=== PATIENT | male | born 1945 | race Caucasian/White ===

== ENCOUNTER 2017-04-01 08:30 | Outpatient (CLI) | payer MEDICARE, BC ==
[2017-04-01 13:07] LABS: BASOPHILS # (AUTO) 0.1 10^3/uL (0.0-0.1); BASOPHILS % (AUTO) 1.9 %; EOSINOPHILS # (AUTO) 0.4 10^3/uL (0.0-0.7); EOSINOPHILS % (AUTO) 9.4 %; HCT - HEMATOCRIT 43.8 % (42.0-52.0); LYMPHOCYTES # (AUTO) 1.5 10^3/uL (1.5-3.5); LYMPHOCYTES % (AUTO) 33.3 %; MEAN CORPUSCULAR HEMOGLOBIN 32.4 pg (27.0-31.0); MEAN CORPUSCULAR HGB CONC 34.2 g/dL (32.0-36.0); MEAN CORPUSCULAR VOLUME 94.6 fL (80.0-94.0); MEAN PLATELET VOLUME 8.3 fL (7.4-11.4); MONOCYTES # (AUTO) 0.5 10^3/uL (0.0-1.0); MONOCYTES % (AUTO) 11.5 %; NEUTROPHILS % (AUTO) 43.9 %; RED BLOOD COUNT 4.62 10^6/uL (4.70-6.10); UNCORRECTED WHITE BLOOD COUNT 4.5 x10^3/uL; WHITE BLOOD COUNT 4.5 x10^3/uL (4.8-10.8)
[2017-04-01 13:22] LABS: ALBUMIN/GLOBULIN RATIO 1.2 (1.0-2.2); BILIRUBIN,TOTAL 1.1 mg/dL (0.2-1.0); BUN - BLOOD UREA NITROGEN 16 mg/dL (6-20); CALCIUM 9.6 mg/dL (8.5-10.3); CARBON DIOXIDE - CO2 27 mmol/L (21-32); CHLORIDE 102 mmol/L (101-111); CHOL/HDL RATIO 3.2 (<5.0); CHOLESTEROL 189 mg/dL; CREATININE 1.1 mg/dL (0.6-1.2); GFR - MDRD 66 (>89); GLUCOSE 98 mg/dL (70-100); HDL CHOLESTEROL 59 mg/dL; LDL/HDL RATIO 1.7 (<3.6); POTASSIUM 4.1 mmol/L (3.5-5.0); SODIUM 136 mmol/L (135-145); TOTAL PROTEIN 7.1 g/dL (6.7-8.2); TRIGLYCERIDES 142 mg/dL; VLDL CHOLESTEROL 28 mg/dL
[2017-04-01 13:27] LABS: PSA FREE 0.09 ng/mL (0.16-2.81)
[2017-04-01 13:28] LABS: PSA TOTAL 0.38 ng/mL (0.000-2.000)
== END 2017-04-01 08:31 | disposition home or self-care (01) ==
LOC: LAB.R 08:30
PROVIDERS: ATTEND Internal Medicine
DX: Z79.899 Other long term (current) drug therapy (principal)
CPT/HCPCS: 80053; 80061; 84154; 85025

== ENCOUNTER 2017-06-10 16:47 | Outpatient (CLI) | payer MEDICARE, BC ==
--- NOTE | 2017-06-11 09:45 | XRAY Report ---
TWO-VIEW CHEST: 06/10/2017 CLINICAL INDICATION: Cough. COMPARISON: 09/30/2015 FINDINGS: Frontal and lateral views of the chest demonstrate a normal cardiac silhouette. Elevation of the left hemidiaphragm is stable. The lungs are clear. No effusion or pneumothorax is present. IMPRESSION: NO EVIDENCE OF ACUTE CARDIOPULMONARY DISEASE. STABLE ELEVATION OF THE LEFT HEMIDIAPHRAG MArnel JOB #: [id number] EXT JOB #:[id number]
== END 2017-06-10 16:48 | disposition home or self-care (01) ==
LOC: DI 16:47
PROVIDERS: ATTEND Internal Medicine
DX: R05 Cough (principal)
CPT/HCPCS: 71020

== ENCOUNTER 2018-09-19 12:02 | Outpatient (CLI) | payer MEDICARE, BC ==
--- NOTE | 2018-09-19 13:41 | XRAY Report ---
Reason: SCIATICA, RIGHT Procedure Date: 09/19/2018 Accession Number: [id number] / [id number] Procedure: XR - Lumbar Spine 2 View CPT Code: FULL RESULT: EXAM: LUMBOSACRAL SPINE RADIOGRAPHY EXAM DATE: 09/19/2018 12:23 PM. CLINICAL HISTORY: Sciatica, right. COMPARISONS: Lumbar spine 2 view 04/20/2016 9:52 AM. TECHNIQUE: 3 views. FINDINGS: Alignment: Relatively stable S-shaped lumbar scoliosis, mild. No significant listhesis. Bones: Five [id number] lumbar vertebral bodies are present. No fractures or bone lesions. Disks: Multilevel disk desiccation with endplate sclerosis and bony spurring. Facets: Severe facet arthropathy at L4 and L5. Sacroiliac Joints: Unremarkable. Soft Tissues: Normal. The visualized bowel gas pattern is normal. IMPRESSION: Relatively stable moderate to severe degenerative changes. RADIA
== END 2018-09-19 12:03 | disposition home or self-care (01) ==
LOC: DI 12:02
PROVIDERS: ATTEND Internal Medicine
DX: M47.9 Spondylosis, unspecified (principal); M51.36 Other intervertebral disc degeneration, lumbar region; M51.37 Other intervertebral disc degeneration, lumbosacral region; M41.9 Scoliosis, unspecified
CPT/HCPCS: 72100

== ENCOUNTER 2019-04-23 12:20 | Emergency (ER) | payer MEDICARE, BC ==
--- NOTE | 2019-04-23 13:32 | XRAY Report ---
Reason: chest tightness Procedure Date: 04/23/2019 Accession Number: [id number] / [id number] Procedure: XR - Chest 1 View X-Ray CPT Code: 17023 FULL RESULT: EXAM: CHEST RADIOGRAPHY. EXAM DATE: 04/23/2019 12:43 PM. CLINICAL HISTORY: Chest tightness. COMPARISON: CHEST 2 VIEW PA/LAT 06/10/2017 5:04 PM. TECHNIQUE: 1 view. FINDINGS: Lungs/Pleura: Elevated left hemidiaphragm, stable since the 06/10/2017 study. Mediastinum: Within exam limitations, the cardiomediastinal contour is normal. Other: None. IMPRESSION: 1. Elevated left hemidiaphragm, stable since the 06/10/2017 study. 2. No focal infiltrates. RADIA
[2019-04-23 13:33] LABS: BASOPHILS # (AUTO) 0.1 10^3/uL (0.0-0.1); BASOPHILS % (AUTO) 1.4 %; EOSINOPHILS # (AUTO) 0.3 10^3/uL (0.0-0.7); EOSINOPHILS % (AUTO) 5.6 %; HGB - HEMOGLOBIN 15.7 g/dL (14.0-18.0); LYMPHOCYTES # (AUTO) 1.2 10^3/uL (1.5-3.5); LYMPHOCYTES % (AUTO) 23.7 %; MEAN CORPUSCULAR HGB CONC 33.1 g/dL (32.0-36.0); MEAN CORPUSCULAR VOLUME 96.9 fL (80.0-94.0); MEAN PLATELET VOLUME 9.1 fL (7.4-11.4); MONOCYTES # (AUTO) 0.6 10^3/uL (0.0-1.0); MONOCYTES % (AUTO) 12.2 %; NEUTROPHILS # (AUTO) 2.9 10^3/uL (1.5-6.6); NEUTROPHILS % (AUTO) 56.7 %; PLT - PLATELET COUNT 224 10^3/uL (130-450); RED CELL DISTRIBUTION WIDTH 12.6 % (12.0-15.0)
[2019-04-23 13:47] LABS: ALBUMIN 4.4 g/dL (3.2-5.5); ALBUMIN/GLOBULIN RATIO 1.3 (1.0-2.2); CALCIUM 9.9 mg/dL (8.5-10.3); CREATININE 1.1 mg/dL (0.6-1.2); TOTAL PROTEIN 7.9 g/dL (6.7-8.2)
--- NOTE | 2019-04-23 14:09 | ED Physician Documentation ---
PD HPI CHEST PAIN - Stated complaint Stated Complaint: CHEST PX - Chief complaint Chief Complaint: Cardiac - History obtained from History obtained from: Patient - History of Present Illness Timing - onset: Other (3 days of constant dull upper sternal aching worse with coughing. Also notes congestion. No fevers, no dyspnea. No travel, leg pain/edema./) Review of Systems Ten Systems: 10 systems reviewed and negative Constitutional: denies: Fever, Chills Cardiac: reports: Chest pain / pressure. denies: Palpitations, Pedal edema, Calf pain Respiratory: reports: Cough. denies: Dyspnea, Hemoptysis, Wheezing GI: denies: Abdominal Pain PD PAST MEDICAL HISTORY - Past Medical History Cardiovascular: None Respiratory: None Endocrine/Autoimmune: None GI: Colon polyps : None Psych: None Musculoskeletal: Osteoarthritis Derm: None - Past Surgical History General: Colonoscopy - Allergies Allergies/Adverse Reactions: Allergies Allergy/AdvReac Type Severity Reaction Status Date / Time No Known Drug Allergies Allergy Verified 08/20/14 08:21 PD ED PE NORMAL - Vitals Vital signs reviewed: Yes - General General: Alert and oriented X 3, No acute distress - HEENT HEENT: PERRL, EOMI - Neck Neck: Supple, no meningeal sign, No bony TTP - Cardiac Cardiac: RRR, No murmur - Respiratory Respiratory: No respiratory distress, Clear bilaterally - Abdomen Abdomen: Normal bowel sounds, Soft, Non tender - Back Back: No CVA TTP, No spinal TTP - Derm Derm: Normal color, Warm and dry - Extremities Extremities: No edema, No calf tenderness / cord - Neuro Neuro: Alert and oriented X 3, Normal speech Results - Vitals Vitals: Vital Signs - 24 hr 04/23/19 12:23 Temperature 36.5 C Heart Rate 68 Respiratory 18 Rate Blood Pressure 148/76 H O2 Saturation 97 Oxygen O2 Source Room air - EKG (time done) 1227 Rate: Rate (enter#) (67) Rhythm: NSR [place]: Normal Intervals: Normal MO QRS: Normal Ischemia: Normal ST segments Computer interpretation: Agree with computer - Labs Labs: Laboratory Tests 04/23/19 04/23/19 04/23/19 13:29 13:29 13:29 WBC 5.0 RBC 4.90 Hgb 15.7 Hct 47.5 MCV 96.9 H MCH 32.0 H MCHC 33.1 RDW 12.6 Plt Count 224 MPV 9.1 Neut # (Auto) 2.9 Lymph # (Auto) 1.2 L [place] # (Auto) 0.6 Eos # (Auto) 0.3 Baso # (Auto) 0.1 Absolute Nucleated RBC 0.00 Nucleated RBC % 0.0 Sodium 140 Potassium 4.5 Chloride 102 Carbon Dioxide 27 Anion Gap 11.0 BUN 16 Creatinine 1.1 Estimated GFR (MDRD) 66 L Glucose 95 Calcium 9.9 Total Bilirubin 2.0 H AST 20 ALT 19 Alkaline Phosphatase 46 Troponin I < 0.04 Total Protein 7.9 Albumin 4.4 Globulin 3.5 Albumin/Globulin Ratio 1.3 Lipase 30 PD MEDICAL DECISION MAKING - ED course ED course: 74-year-old gentleman with 3 days of constant chest pain, it is atypical with a negative EKG and negative troponin, heart score is 2 Nothing in the history or physical to suggest aortic dissection or PE. Departure - Departure Disposition: 01 Home, Self Care Clinical Impression: Atypical chest pain Condition: Good Record reviewed to determine appropriate education?: Yes Health Concerns: chest pain Plan of Treatment: 3 days constant CP, neg trop/ekg Instructions: ED Chest Pain Atypical Unkn Cause Comments: Return if pain worsens or changes, follow-up with your impregnator helper tomorrow and discuss stress testing.
[2019-04-23 14:39] VITALS: BP 140/83
== END 2019-04-23 14:39 | disposition home or self-care (01) ==
LOC: ED 12:20
DX: R07.89 Other chest pain (principal)
CPT/HCPCS: 36415; 71045; 80053; 83690; 84484; 85025; 93005; 99283; 99284

== ENCOUNTER 2019-11-20 16:25 | Outpatient (CLI) | payer MEDICARE, BC ==
--- NOTE | 2019-11-20 17:05 | XRAY Report ---
Reason: COUGH Procedure Date: 11/20/2019 Accession Number: [id number] / [id number] Procedure: XR - Chest 2 View X-Ray CPT Code: 79597 Addended Final Report FULL RESULT: EXAM: CHEST RADIOGRAPHY EXAM DATE: 11/20/2019 04:48 PM. CLINICAL HISTORY: COUGH. COMPARISON: CHEST 1 VIEW 04/23/2019 12:41 PM. TECHNIQUE: 2 views. FINDINGS: Lungs/Pleura: No focal opacities evident. No pleural effusion. No pneumothorax. Normal volumes. Left hemidiaphragm elevation, unchanged compared to prior. Mediastinum: Heart and mediastinal contours are unremarkable. Other: None. IMPRESSION: No acute disease. RADIA The call report notification system was initiated by Dr. Gregorio Barakat at 05:06 PM on 11/20/2019. ADDENDUM: 11/20/19 17:13 The above call report findings were discussed with Marlena Akhtar by Dr. Gregorio Barakat at 05:13 PM on 11/20/2019.
== END 2019-11-20 16:26 | disposition home or self-care (01) ==
LOC: DI 16:25
PROVIDERS: ATTEND Internal Medicine
DX: R05 Cough (principal)
CPT/HCPCS: 71046

== ENCOUNTER 2021-05-05 12:27 | Outpatient (CLI) | payer MEDICARE, BC ==
--- NOTE | 2021-05-05 14:35 | MRI Report ---
PROCEDURE: Brain W/O INDICATIONS: PARKINSON DISEASE TECHNIQUE: Noncontrast axial T1 spin echo, axial T2 fast spin echo, sagittal and axial FLAIR, coronal T2 fast sp in echo, axial gradient echo, axial diffusion and ADC through the brain. COMPARISON: None. FINDINGS: Image quality: Excellent. CSF Spaces: Basal cisterns are patent. No extra-axial fluid collections. Ventricles are normal in size and shape. Brain: No intracranial masses or hemorrhage. Thompson/white matter interface is normal. Brainstem appe ars normal. Diffusion-weighted images demonstrate no acute ischemic insult. No chronic ischemic ins ults. Normal intravascular flow voids are present. Skull and face: Calvarium has normal marrow signal. Orbits appear normal. Sinuses: Mucosal thickening noted in the maxillary sinuses, the ethmoid air cells, the frontal sinuse s and sphenoid sinuses. Mastoids are clear. IMPRESSION: 1. No acute intracranial disease process. 2. Areas of acute or chronic infarction. 3. No abnormal intracranial mass or mass effect. 4. Mild, diffuse cerebral volume loss. 5. Pansinusitis. Reviewed by: Elma Westfall MD, PhD on 05/05/2021 2:34 PM PDT Approved by: Elma Westfall MD, PhD on 05/05/2021 2:34 PM PDT Station ID: [id number]
== END 2021-05-05 12:28 | disposition home or self-care (01) ==
LOC: DI 12:27
PROVIDERS: ATTEND Psychiatry & Neurology Neurology
DX: G20 Parkinson's disease (principal); J32.4 Chronic pansinusitis

== ENCOUNTER 2021-08-14 13:18 | Outpatient (CLI) | payer MEDICARE, BC ==
[2021-08-14 18:01] LABS: BASOPHILS # (AUTO) 0.1 10^3/uL (0.0-0.1); BASOPHILS % (AUTO) 1.1 %; EOSINOPHILS # (AUTO) 0.3 10^3/uL (0.0-0.7); EOSINOPHILS % (AUTO) 6.1 %; HGB - HEMOGLOBIN 15.3 g/dL (14.0-18.0); LYMPHOCYTES # (AUTO) 1.5 10^3/uL (1.5-3.5); LYMPHOCYTES % (AUTO) 27.3 %; MEAN CORPUSCULAR HEMOGLOBIN 31.8 pg (27.0-31.0); MEAN CORPUSCULAR HGB CONC 31.9 g/dL (32.0-36.0); MEAN CORPUSCULAR VOLUME 99.8 fL (80.0-94.0); MEAN PLATELET VOLUME 9.8 fL (7.4-11.4); MONOCYTES # (AUTO) 0.6 10^3/uL (0.0-1.0); NEUTROPHILS % (AUTO) 54.1 %; PLT - PLATELET COUNT 240 10^3/uL (130-450); RED BLOOD COUNT 4.81 10^6/uL (4.70-6.10); RED CELL DISTRIBUTION WIDTH 12.8 % (12.0-15.0); WHITE BLOOD COUNT 5.5 x10^3/uL (4.8-10.8)
[2021-08-14 18:28] LABS: ALBUMIN 4.3 g/dL (3.2-5.5); ALBUMIN/GLOBULIN RATIO 1.3 (1.0-2.2); ALKALINE PHOSPHATASE 53 IU/L (42-121); ALT ALANINE AMINOTRANSFERASE < 10 IU/L (10-60); AST ASPARTATE AMINOTRANSFERASE 14 IU/L (10-42); BUN - BLOOD UREA NITROGEN 15 mg/dL (6-20); CALCIUM 9.8 mg/dL (8.5-10.3); CARBON DIOXIDE - CO2 29 mmol/L (21-32); CHLORIDE 100 mmol/L (101-111); CHOL/HDL RATIO 3.2 (<5.0); CHOLESTEROL 178 mg/dL; GFR - MDRD 73 (>89); GLUCOSE 100 mg/dL (70-100); HDL CHOLESTEROL 56 mg/dL; LDL CHOLESTEROL,CALCULATED 101 mg/dL; LDL/HDL RATIO 1.8 (<3.6); POTASSIUM 4.3 mmol/L (3.5-5.0); SODIUM 136 mmol/L (135-145); TOTAL PROTEIN 7.7 g/dL (6.7-8.2); TRIGLYCERIDES 104 mg/dL; VLDL CHOLESTEROL 21 mg/dL
[2021-08-14 18:31] LABS: THYROID STIMULATING HORMONE 2.16 uIU/mL (0.34-5.60)
== END 2021-08-14 23:59 | disposition home or self-care (01) ==
LOC: LAB.WCP 13:18
PROVIDERS: ATTEND Family Medicine
DX: G20 Parkinson's disease (principal); M19.90 Unspecified osteoarthritis, unspecified site
CPT/HCPCS: 36415; 80053; 80061; 83721; 84443; 85025

== ENCOUNTER 2022-07-31 10:17 | Outpatient (CLI) | payer MEDICARE, BC ==
[2022-07-31 10:32] LABS: BASOPHILS # (AUTO) 0.1 10^3/uL (0.0-0.1); BASOPHILS % (AUTO) 1.2 %; EOSINOPHILS # (AUTO) 0.4 10^3/uL (0.0-0.7); EOSINOPHILS % (AUTO) 8.5 %; HCT - HEMATOCRIT 44.3 % (42.0-52.0); LYMPHOCYTES # (AUTO) 1.1 10^3/uL (1.5-3.5); LYMPHOCYTES % (AUTO) 21.5 %; MEAN CORPUSCULAR HEMOGLOBIN 30.8 pg (27.0-31.0); MEAN CORPUSCULAR HGB CONC 31.6 g/dL (32.0-36.0); MEAN CORPUSCULAR VOLUME 97.4 fL (80.0-94.0); MEAN PLATELET VOLUME 9.2 fL (7.4-11.4); MONOCYTES # (AUTO) 0.6 10^3/uL (0.0-1.0); MONOCYTES % (AUTO) 10.8 %; NEUTROPHILS % (AUTO) 57.2 %; PLT - PLATELET COUNT 220 10^3/uL (130-450); RED BLOOD COUNT 4.55 10^6/uL (4.70-6.10); RED CELL DISTRIBUTION WIDTH 12.9 % (12.0-15.0); WHITE BLOOD COUNT 5.2 x10^3/uL (4.8-10.8)
[2022-07-31 11:00] LABS: THYROID STIMULATING HORMONE 0.87 uIU/mL (0.34-5.60)
[2022-07-31 11:02] LABS: ALBUMIN 4.1 g/dL (3.2-5.5); ALBUMIN/GLOBULIN RATIO 1.3 (1.0-2.2); ALKALINE PHOSPHATASE 52 IU/L (42-121); ALT ALANINE AMINOTRANSFERASE < 10 IU/L (10-60); AST ASPARTATE AMINOTRANSFERASE 11 IU/L (10-42); BILIRUBIN,TOTAL 1.6 mg/dL (0.2-1.0); BUN - BLOOD UREA NITROGEN 19 mg/dL (6-20); CALCIUM 9.7 mg/dL (8.5-10.3); CARBON DIOXIDE - CO2 28 mmol/L (21-32); CHLORIDE 105 mmol/L (101-111); CHOLESTEROL 160 mg/dL; CREATININE 0.9 mg/dL (0.6-1.2); GFR - MDRD 82 (>89); GLUCOSE 101 mg/dL (70-100); HDL CHOLESTEROL 54 mg/dL; LDL CHOLESTEROL,CALCULATED 94 mg/dL; LDL/HDL RATIO 1.7 (<3.6); POTASSIUM 4.3 mmol/L (3.5-5.0); SODIUM 138 mmol/L (135-145); TOTAL PROTEIN 7.2 g/dL (6.7-8.2); TRIGLYCERIDES 62 mg/dL; VLDL CHOLESTEROL 12 mg/dL
== END 2022-07-31 10:18 | disposition home or self-care (01) ==
LOC: LAB 10:17
PROVIDERS: ATTEND Family Medicine
DX: G20 Parkinson's disease (principal); M54.31 Sciatica, right side; M19.90 Unspecified osteoarthritis, unspecified site; R63.4 Abnormal weight loss
CPT/HCPCS: 36415; 80053; 80061; 83721; 84443; 85025

== ENCOUNTER 2022-11-19 10:52 | Outpatient (CLI) | payer MEDICARE, BC ==
[2022-11-19 11:40] LABS: BASOPHILS # (AUTO) 0.1 10^3/uL (0.0-0.1); EOSINOPHILS # (AUTO) 0.4 10^3/uL (0.0-0.7); EOSINOPHILS % (AUTO) 6.6 %; HCT - HEMATOCRIT 44.7 % (42.0-52.0); LYMPHOCYTES # (AUTO) 1.1 10^3/uL (1.5-3.5); LYMPHOCYTES % (AUTO) 18.3 %; MEAN CORPUSCULAR HEMOGLOBIN 31.1 pg (27.0-31.0); MEAN CORPUSCULAR HGB CONC 31.3 g/dL (32.0-36.0); MEAN CORPUSCULAR VOLUME 99.3 fL (80.0-94.0); MEAN PLATELET VOLUME 9.4 fL (7.4-11.4); MONOCYTES # (AUTO) 0.6 10^3/uL (0.0-1.0); MONOCYTES % (AUTO) 10.5 %; NEUTROPHILS # (AUTO) 3.7 10^3/uL (1.5-6.6); NEUTROPHILS % (AUTO) 63.3 %; PLT - PLATELET COUNT 218 10^3/uL (130-450); WHITE BLOOD COUNT 5.9 x10^3/uL (4.8-10.8)
[2022-11-19 11:48] LABS: CALCIUM 9.9 mg/dL (8.5-10.3); CREATININE 0.9 mg/dL (0.6-1.2); INR 1.1 (0.8-1.2); POTASSIUM 4.5 mmol/L (3.5-5.0); PT - PROTHROMBIN TIME 11.9 secs (9.9-12.6)
[2022-11-19 11:55] LABS: PARTIAL THROMBOPLASTIN TIME 28.6 secs (24.9-33.3)
--- NOTE | 2022-11-19 15:21 | XRAY Report ---
PROCEDURE: Chest 1 View X-Ray INDICATIONS: PRESURGERY EEVALUATION TECHNIQUE: One view of the chest was acquired. COMPARISON: Chest x-ray 2 views, 11/20/2019. FINDINGS: Surgical changes and devices: None. Lungs and pleura: There is chronic left hemidiaphragm elevation and left basilar atelectasis. No ple ural effusions or pneumothorax. Mediastinum: Mediastinal contours appear normal. Heart size is normal. Bones and chest wall: No suspicious bony lesions. Overlying soft tissues appear unremarkable. IMPRESSION: 1. No acute cardiopulmonary disease. 2. Chronic left diaphragmatic elevation and left basilar atelectasis. Reviewed by: Andres Huang MD on 11/19/2022 3:20 PM PST Approved by: Andres Huang MD on 11/19/2022 3:20 PM PST Station ID: [id number]
== END 2022-11-19 10:53 | disposition home or self-care (01) ==
LOC: DI 10:52
PROVIDERS: ATTEND Family Medicine
DX: Z01.818 Encounter for other preprocedural examination (principal); J98.11 Atelectasis
CPT/HCPCS: 36415; 80048; 85025; 85610; 85730; 87086; 87181; 87640

== ENCOUNTER 2022-12-04 09:40 | Outpatient (CLI) | payer MEDICARE, BC ==
[2022-12-04 10:25] LABS: BILIRUBIN,URINE NEGATIVE (NEGATIVE); GLUCOSE, URINE (UA) NEGATIVE (NEGATIVE); KETONES,URINE (UA) NEGATIVE (NEGATIVE); LEUKOCYTE ESTERASE, URINE NEGATIVE (NEGATIVE); NITRITE,URINE NEGATIVE (NEGATIVE); OCCULT BLOOD,URINE NEGATIVE (NEGATIVE); PROTEIN,URINE NEGATIVE (NEGATIVE); UROBILINOGEN,URINE 0.2 (NORMAL) E.U./dL (NORMAL)
[2022-12-04 10:33] LABS: BACTERIA,URINE Rare /HPF (None Seen); CLARITY,URINE CLEAR (CLEAR); RBC,URINE None Seen /HPF (0-5); SQUAMOUS EPITHELIAL CELL,UR RARE Squamous (<= Few); WBC,URINE 0-3 /HPF (0-3)
== END 2022-12-04 09:41 | disposition home or self-care (01) ==
LOC: LAB 09:40
PROVIDERS: ATTEND Family Medicine
DX: N41.1 Chronic prostatitis (principal); R82.71 Bacteriuria
CPT/HCPCS: 81001; 87086

== ENCOUNTER 2023-02-23 09:23 | Outpatient (CLI) | payer MEDICARE, BC ==
[2023-02-23 09:44] LABS: BASOPHILS # (AUTO) 0.1 10^3/uL (0.0-0.1); BASOPHILS % (AUTO) 1.6 %; EOSINOPHILS # (AUTO) 0.4 10^3/uL (0.0-0.7); EOSINOPHILS % (AUTO) 8.3 %; HCT - HEMATOCRIT 42.9 % (42.0-52.0); HGB - HEMOGLOBIN 13.8 g/dL (14.0-18.0); LYMPHOCYTES # (AUTO) 1.1 10^3/uL (1.5-3.5); LYMPHOCYTES % (AUTO) 20.8 %; MEAN CORPUSCULAR HEMOGLOBIN 31.2 pg (27.0-31.0); MEAN CORPUSCULAR HGB CONC 32.2 g/dL (32.0-36.0); MEAN CORPUSCULAR VOLUME 96.8 fL (80.0-94.0); MEAN PLATELET VOLUME 9.5 fL (7.4-11.4); MONOCYTES # (AUTO) 0.5 10^3/uL (0.0-1.0); MONOCYTES % (AUTO) 9.9 %; PLT - PLATELET COUNT 185 10^3/uL (130-450); PT - PROTHROMBIN TIME 11.7 secs (9.9-12.6); RED BLOOD COUNT 4.43 10^6/uL (4.70-6.10); RED CELL DISTRIBUTION WIDTH 12.9 % (12.0-15.0); WHITE BLOOD COUNT 5.1 x10^3/uL (4.8-10.8)
[2023-02-23 09:47] LABS: CALCIUM 9.5 mg/dL (8.5-10.3); CREATININE 0.9 mg/dL (0.6-1.2); POTASSIUM 4.1 mmol/L (3.5-5.0)
[2023-02-23 09:52] LABS: PARTIAL THROMBOPLASTIN TIME 27.6 secs (24.9-33.3)
== END 2023-02-23 09:24 | disposition home or self-care (01) ==
LOC: LAB 09:23
PROVIDERS: ATTEND Family Medicine
DX: Z01.812 Encounter for preprocedural laboratory examination (principal)
CPT/HCPCS: 36415; 80048; 85025; 85610; 85730; 87081; 87640

== ENCOUNTER 2023-08-02 16:00 | Outpatient (CLI) | payer MEDICARE, BC | END 2023-08-02 16:15 | disposition home or self-care (01) | LOC: LAB.N 16:00 | PROVIDERS: ATTEND Physician Assistant Medical | DX: R30.0 Dysuria (principal) | CPT/HCPCS: 87086 ==

== ENCOUNTER 2023-08-02 17:07 | Emergency (ER) | payer MEDICARE, BC ==
[2023-08-02 17:26] VITALS: BP 146/76; O2SAT 98
--- NOTE | 2023-08-02 17:58 | ED Physician Documentation ---
History of Present Illness - Stated complaint Stated Complaint: - Chief complaint Chief Complaint: General - History obtained from History obtained from: Patient - Additonal information Additional information: Very nice 78-year-old gentleman presents with right testicular swelling and mild discomfort. Symptoms started about 2 weeks ago as he states it started after he went on a long bike ride and thought perhaps he irritated the testicle. He has not noted any improvement with time however. He has not had a fever or chills, no flank pain, no dysuria urgency or frequency, no penile discharge. He has never had anything similar. He went to the clinic today and had a negative urinalysis and was sent over to the ER for an ultrasound. Review of Systems Constitutional: reports: Reviewed and negative Cardiac: reports: Reviewed and negative Respiratory: reports: Reviewed and negative GI: reports: Reviewed and negative : reports: Testicular pain, Testicular mass. denies: Dysuria, Frequency, Hesitancy, Unable to Void, Incontinent, Hematuria, Discharge Skin: reports: Reviewed and negative PD PAST MEDICAL HISTORY - Past Medical History Cardiovascular: None Respiratory: None Endocrine/Autoimmune: None GI: Colon polyps : None Psych: None Musculoskeletal: Osteoarthritis Derm: None - Past Surgical History General: Colonoscopy - Present Medications Home Medications: Ambulatory Orders Medication Instructions Recorded Confirmed levoFLOXacin [Levaquin] 500 mg PO QD 10 Days #20 tablet 08/02/23 - Allergies Allergies/Adverse Reactions: Allergies Allergy/AdvReac Type Severity Reaction Status Date / Time No Known Drug Allergies Allergy Verified 08/02/23 17:15 PD ED PE NORMAL - Vitals Vital signs reviewed: Yes - General General: Alert and oriented X 3, No acute distress, Well developed/nourished - HEENT HEENT: Atraumatic, Moist mucous membranes - Cardiac Cardiac: RRR, No murmur - Respiratory Respiratory: No respiratory distress, Clear bilaterally - Male Male : Other (Right testicular swelling and mild tenderness, mild left testicular swelling without tenderness, no erythema, no penile dc) Results - Vitals Vitals: Vital Signs - 24 hr 08/02/23 17:16 Temperature 36.7 C Heart Rate 76 Respiratory 16 Rate Blood Pressure 146/76 H O2 Saturation 98 Oxygen O2 Source Room air - Rads (name of study) No standard instances Relevant Findings:: Final report received PD Medical Decision Making - ED course Complexity details: reviewed results, re-evaluated patient, considered differential, d/w patient ED course: 78-year-old male presented with right testicular pain and swelling for the last 2 weeks as described in HPI. The patient is well-appearing here on physical exam in no acute distress. Urinalysis was done in clinic and was negative, therefore proceeded with the ultrasound here which reveals right epididymitis and a extratesticular cyst as well as mild hydrocele. Going to treat the epididymitis with Levaquin 500 mg p.o. x10 days and patient was encouraged to elevate to scrotum, utilize cool compress, Tylenol and ibuprofen as needed for pain. He was cautioned on the potential side effects of the Levaquin. Recommend that he follow-up with urologist on outpatient basis to monitor the extratesticular cyst. I advised he should have some improvement in the right testicle pain as treatment for the epididymitis is in place. Impression reviewed if new or worsening symptoms. Departure - Departure Disposition: 01 Home, Self Care Clinical Impression: Right epididymitis Hydrocele Qualifiers: Hydrocele type: unspecified Qualified Code(s): N43.3 - Hydrocele, unspecified Condition: Good Instructions: ED Epididymitis Follow-Up: Chapincito Solo MD [Provider Admit Priv/Credential] - Prescriptions: levoFLOXacin [Levaquin] 500 mg PO QD 10 Days #20 tablet Comments: You have a cyst on the testicle that should be followed by the urologist. Please schedule follow-up with Dr. Chapincito Solo as listed above. I am also placing on antibiotics for 10 days for epididymitis. This is a inflammation of the epididymis that is sometimes caused by an E. coli bacteria. Try to keep the scrotum elevated, you can do this by placing a Pillowcase underneath the scrotum and not raising it up. You can also utilize a cool compress to the area to help with pain and swelling. Do not apply this directly to the skin however. You may use Tylenol or ibuprofen as needed. Return if you develop a fever or worsening symptoms. Forms: PCP List
--- NOTE | 2023-08-02 18:53 | Ultrasound Report ---
PROCEDURE: Testicle INDICATIONS: right testicular swelling TECHNIQUE: Real-time scanning was performed of the scrotum and testicles, with image documentation. Color and p ulse Doppler interrogation was performed of both testicles. COMPARISON: None. FINDINGS: Right: Testicle is normal in size at 5.1 x 2.7 x 4.4 cm, and heterogeneous in echotexture. Epididym is is normal in overall size and morphology. There is increased vascularity to the epididymis. Mild h ydrocele. No varicoceles. Overlying scrotal skin is normal in thickness. There is a right extratest icular cyst measuring 6.7 x 4.1 x 7.9 cm. Left: Testicle is normal in size at 4.5 x 3.2 x 2.6 cm, and is heterogeneous in echotexture. Epidid ymis is normal in overall size and morphology. Mild hydrocele. Left varicoceles. Overlying scrotal skin is normal in thickness. Doppler: Color and pulse Doppler demonstrate normal and symmetric arterial flow in both testicles. I ncreased vascularity to the right epididymis. IMPRESSION: 1.Increased vascularity to the right epididymis, raising concern for epididymitis. 2.There is a right extratesticular cyst measuring 7.9 cm of unclear etiology. 3.Mild bilateral hydroceles. 4.Left varicocele. Reviewed by: Greyson Daniels MD on 08/02/2023 6:52 PM PDT Approved by: Greyson Daniels MD on 08/02/2023 6:52 PM PDT Station ID: [id number]
== END 2023-08-02 19:18 | disposition home or self-care (01) ==
LOC: ED 17:07
DX: N45.1 Epididymitis (principal); N43.3 Hydrocele, unspecified; N44.2 Benign cyst of testis; R30.0 Dysuria
CPT/HCPCS: 87086; 99283; 99284

== ENCOUNTER 2024-05-08 11:37 | Outpatient (CLI) | payer MEDICARE, BC ==
--- NOTE | 2024-05-08 13:40 | Ultrasound Report ---
PROCEDURE: Testicle INDICATIONS: TESTIULAR CYST TECHNIQUE: Real-time scanning was performed of the scrotum and testicles, with image documentation. Color and p ulse Doppler interrogation was performed of both testicles. COMPARISON: Testicular ultrasound 08/02/2023 FINDINGS: Right: Testicle is enlarged in size compared to the left at 4.1 x 4.1 x 3.8 cm, and homogenous in e chotexture. Epididymis is normal in overall size and morphology. Moderate hydrocele. No varicoceles . Overlying scrotal skin is normal in thickness. Right extratesticular cyst is again noted. Left: Testicle is normal in size at 3.2 x 4.0 x 3.1 cm, and homogeneous in echotexture. Epididymis is normal in overall size and morphology. Moderate hydrocele. No varicoceles. Overlying scrotal ski n is normal in thickness. Doppler: Color and pulse Doppler is well visualized within the left testicle. The right testicle dem onstrates poorly visualized vascular flow seen predominantly in a peripheral pattern. IMPRESSION: Diminished asymmetric flow within the right testicle compared to the left as well as mild increased s ize. Torsion is suspected, partial given small residual vascular flow. Reviewed by: Argelia Hankins MD on 05/08/2024 1:38 PM PDT Approved by: Argelia Hankins MD on 05/08/2024 1:38 PM PDT Station ID: [id number]
== END 2024-05-08 11:38 | disposition home or self-care (01) ==
LOC: DI 11:37
PROVIDERS: ATTEND Physician Assistant
DX: N44.2 Benign cyst of testis (principal)

== ENCOUNTER 2024-05-08 13:01 | Emergency (ER) | payer MEDICARE, BC ==
--- NOTE | 2024-05-08 14:35 | ED Physician Documentation ---
History of Present Illness - Stated complaint Stated Complaint: - Chief complaint Chief Complaint: General - History obtained from History obtained from: Patient - Additonal information Additional information: 79-year-old male presents with a swollen and painful right testicle. Symptoms started 3 days ago after he went on a bike ride. Since then there has been no improvement in his symptoms and he feels somewhat worse. The pain is worse when he is moving around or using the muscles of the groin, stable at rest. He has been taking Tylenol with some relief. He has not had any dysuria urgency or frequency, no flank pain, no fever or chills no penile discharge. He states something similar happened to him earlier this year but resolved on its own after a week or so. Review of Systems Constitutional: reports: Reviewed and negative Eyes: reports: Reviewed and negative Ears: reports: Reviewed and negative Nose: reports: Reviewed and negative Throat: reports: Reviewed and negative Cardiac: reports: Reviewed and negative Respiratory: reports: Reviewed and negative GI: reports: Reviewed and negative : reports: Testicular pain, Testicular mass PD PAST MEDICAL HISTORY - Past Medical History Past Medical History: Yes Cardiovascular: None Respiratory: None Neuro: Parkinson's Endocrine/Autoimmune: None GI: Colon polyps : None Psych: None Musculoskeletal: Osteoarthritis Derm: None - Past Surgical History Past Surgical History: Yes General: Colonoscopy - Present Medications Home Medications: Ambulatory Orders Medication Instructions Recorded Confirmed levoFLOXacin [Levaquin] 500 mg PO QD 10 Days #20 tablet 08/02/23 oxyCODONE [Roxicodone] 5 mg PO Q4-6H PRN #12 tablet 05/08/24 - Allergies Allergies/Adverse Reactions: Allergies Allergy/AdvReac Type Severity Reaction Status Date / Time No Known Drug Allergies Allergy Verified 05/08/24 13:14 - Social History Does the pt smoke?: No Smoking Status: Never smoker Does the pt drink ETOH?: No Does the pt have substance abuse?: No - Immunizations Immunizations are current?: Yes - POLST Patient has POLST: No PD ED PE NORMAL - Vitals Vital signs reviewed: Yes - General General: Alert and oriented X 3, No acute distress, Well developed/nourished - HEENT HEENT: Atraumatic, Moist mucous membranes - Cardiac Cardiac: RRR, No murmur - Respiratory Respiratory: No respiratory distress, Clear bilaterally - Abdomen Abdomen: Normal bowel sounds, Soft, Non tender, Non distended - Male Male : Other (Large, tender and slightly red in the right testicle, normal left testicle, no penile discharge.) - Derm Derm: Normal color, Warm and dry, No rash - Extremities Extremities: No deformity, No tenderness to palpate, Normal ROM s pain, No edema - Neuro Neuro: Alert and oriented X 3, No motor deficit, No sensory deficit, Normal speech Eye Opening: Spontaneous Motor: Obeys Commands Verbal: Oriented GCS Score: 15 Results - Vitals Vitals: Vital Signs - 24 hr 05/08/24 13:09 Temperature 36.3 C L Heart Rate 66 Respiratory 18 Rate Blood Pressure 115/68 O2 Saturation 99 Oxygen O2 Source Room air - Rads (name of study) No standard instances Relevant Findings:: Final report received PD Medical Decision Making - ED course Complexity details: reviewed results, re-evaluated patient, considered differential, d/w patient, d/w family, d/w executive search consultant ED course: 79-year-old male presented with right testicle pain and swelling as described in HPI. This has been going on for several days, and started after he went on a bike ride. He had an ultrasound prior to my evaluation which shows a partial torsion. This was discussed with the urologist, Dr. Solo, who advised that if patient's pain is managed, he can follow-up in the clinic however if pain not well-managed, he would be happy to admit. I discussed this with patient and his and he thinks at this point and that he would like to follow-up in the clinic, he understands that there is potential for loss of the testicle of given the duration of symptoms, there may already be loss of tissue. We will try pain control here as patient's is also awaiting a workup and likely discharge home with pain medication with outpatient follow-up with Dr. Solo if improvement in pain, if no improvement in pain then will discuss with Dr. Solo for possible admission. No additional workup is indicated at this time. Departure - Departure Disposition: 01 Home, Self Care Clinical Impression: Right testicular torsion Condition: Good Instructions: Testicular Appendage Torsion Follow-Up: Chapincito Solo MD [Provider Admit Priv/Credential] - Prescriptions: oxyCODONE [Roxicodone] 5 mg PO Q4-6H PRN #12 tablet PRN Reason: Severe Pain (Level 7-10) Comments: Please call Dr. Solo's office tomorrow for follow-up. Continue pain medication as needed, You may take Tylenol or ibuprofen in addition to the ox ycodone I prescribed. Keep the testicle elevated Which will help with the pain as well. If you are not having too much pain at home and it not managed by the pain medication, please return to the ER. Forms: PCP List
[2024-05-08] MEDS: oxyCODONE 5 MG TABLET PO STA (14:46)
[2024-05-08 15:14] VITALS: BP 122/67; O2SAT 100
== END 2024-05-08 14:56 | disposition home or self-care (01) ==
LOC: ED 13:01
DX: N44.00 Torsion of testis, unspecified (principal); G20.A1 Parkinson's disease without dyskinesia, without mention of fluctuations; N44.2 Benign cyst of testis
CPT/HCPCS: 76870; 99283; 99284; A9270

== ENCOUNTER 2024-05-15 08:49 | Day surgery (SDC) | payer MEDICARE, BC ==
[2024-05-15] MEDS ORDERED: ceFAZolin 2 GM VIAL ONE (08:56)
[2024-05-15] MEDS: LACTATED RINGERS 1,000 ML IV ONE (09:01)
[2024-05-15] MEDS ORDERED: LIDOCAINE-PF 2% 10 ML AMP SUBQ ONE (10:57)
[2024-05-15] MEDS ORDERED: fentaNYL 100 MCG/2 ML VIAL ONE ×2 (10:57→13:12)
[2024-05-15] MEDS ORDERED: PROPOFOL 200 MG/20 ML VIAL IVP ONE (10:58)
[2024-05-15] MEDS ORDERED: BUPIVACAINE 0.5% PF 10 ML VIAL ONE (11:18)
[2024-05-15] MEDS ORDERED: LIDOCAINE-MPF 1% 30 ML VIAL ONE (11:18)
--- NOTE | 2024-05-15 11:22 | ANESTHESIA ---
Pre-Anesthesia VS, & Labs - Diagnosis R testicular torsion - Procedure right orchiectomy Height: 5 ft 11.5 in Weight (kg): 82.1 kg Body Mass Index: 24.9 BMI Classification: Normal - NPO >8 hours Home Medications and Allergies Home Medications: Ambulatory Orders Carbidopa/Levodopa [Carbidopa-Levodopa 25-100 Tab] 2 each PO QID 05/12/24 Rasagiline [Azilect] PO QPM 05/12/24 oxyCODONE [Roxicodone] 5 mg PO DAILY 05/12/24 Carbidopa/Levodopa [Carbidopa-Levodopa 25-100 Tab] 2 each PO QID 05/12/24 Rasagiline [Azilect] PO QPM 05/12/24 oxyCODONE [Roxicodone] 5 mg PO DAILY 05/12/24 Allergies/Adverse Reactions: Allergies Allergy/AdvReac Type Severity Reaction Status Date / Time No Known Drug Allergies Allergy Verified 05/15/24 09:07 Anes History & Medical History - Anesthetic History Anesthesia Complications: reports: No previous complications Family history of Anesthesia Complications: Denies - Medical History Cardiovascular: reports: None Pulmonary: reports: None Gastrointestinal: reports: None, Colon polyps Urinary: reports: None Neuro: reports: Parkinson's (deep brain stimulator to be turned off during case) Musculoskeletal: reports: Osteoarthritis Endocrine/Autoimmune: reports: None Blood Disorders: reports: None Skin: reports: None Smoking Status: Never smoker - Surgical History General: reports: Colonoscopy Eyes Ears Nose Throat (EENT): reports: Cataracts Results - EKG Results EKG Comparison: Reviewed EKG Exam General: Alert Dental: WNL Mouth Openin Fingerbreadth Neck Mobility: Normal Mallampati classification: II Thyromental Distance: 4-6 cm Respiratory: Lungs clear Cardiovascular: Regular rate Plan Anesthesia Type: General Consent for Procedure(s) Verified and Reviewed: Yes Code Status: Attempt Resuscitation ASA classification: 3-Severe systemic disease Is this case an emergency?: Yes
[2024-05-15] MEDS ORDERED: ATROPINE ABBOJECT 1 MG/10 ML SYRINGE IVP PRN (11:27)
[2024-05-15] MEDS ORDERED: HYDROmorphone 0.5 MG/0.5 ML SYRINGE IVP PRN (11:27)
[2024-05-15] MEDS ORDERED: ePHEDrine 50 MG/ML VIAL IVP PRN (11:27)
[2024-05-15] MEDS ORDERED: MORPHINE 2 MG/ML CARPUJECT IVP PRN (11:27)
[2024-05-15] MEDS ORDERED: ONDANSETRON 4 MG/2 ML VIAL IVP PRN ×2 (11:27→12:55)
[2024-05-15] MEDS ORDERED: NALOXONE 0.4 MG/ML VIAL IVP PRN (11:27)
[2024-05-15] MEDS ORDERED: METOCLOPRAMIDE 10 MG/2 ML VIAL IVP PRN (11:27)
[2024-05-15] MEDS ORDERED: LACTATED RINGERS 1,000 ML IV SCH (12:00)
[2024-05-15] MEDS: LIDOCAINE-MPF 1% 30 ML VIAL IM ONE (12:17)
[2024-05-15] MEDS: BUPIVACAINE 0.5% PF 10 ML VIAL IM ONE (12:17)
[2024-05-15] MEDS ORDERED: ONDANSETRON 4 MG/2 ML VIAL ONE (12:30)
[2024-05-15] MEDS ORDERED: DEXAMETHASONE 4 MG/ML VIAL ONE (12:30)
--- NOTE | 2024-05-15 13:00 | Discharge Plan ---
Discharge Plan Problem Reviewed?: Yes Disposition: Home, Self Care Condition: Good Prescriptions: Docusate Sodium 100Mg Capsule [Colace 100Mg Capsule] 100 mg PO DAILY #10 cap oxyCODONE [Roxicodone] 5 mg PO Q4H PRN #10 tablet PRN Reason: Pain Diet: Regular Activity Restrictions: Additional Comments (as instructed) Shower Restrictions: No Driving Restrictions: No Instruction Topics: Orchiectomy Dc Additional Instructions or Follow Up instructions: You will be contacted for follow-up with Dr. Solo in 4 to 6 weeks time No Smoking: If you smoke, Please STOP! Call for help. Follow-up with: Mikie Marie MD [Primary Care Provider] - Chapincito Solo MD [Provider Admit Priv/Credential] -
--- NOTE | 2024-05-15 13:00 | OPERATIVE REPORT ---
Operative Report - General Procedure Date: 05/15/24 Planned Procedure: Right simple orchiectomy Pre-Op Diagnosis: Right testicular torsion Procedure Performed: Right simple orchiectomy Post Op Diagnosis: Right testicular torsion - Procedure Note Primary Surgeon: Edil Anesthesia Provider: BRANDEN Cordova Anesthesia Technique: General LMA Pathology: right testicle Estimated Blood Loss (mL): 2 Complications: none - Other Other Information/Narrative: After informed consent was obtained the patient was brought to the OR and laid in the supine position. The patient was anesthetized per anesthesia protocols and prepped and draped in usual sterile fashion. A formal timeout was performed reconfirmed the patient, procedure and laterality. He was noted to have an enlarged and firm right testicle. Local was instilled in the midline median raphae and a sharp incision was made about 2 inches in length. This was dissected down using combination electrocautery and sharp dissection and blunt dissection to release the tunica vaginalis. This was then incised which opened and showed a moderate amount of dark mali fluid. The testicle was black. This was traced down to a very tight twisted spermatic cord. It was so tight we could not even divide into 2 packets and so we suture- ligated with 0 silk suture and removed the right testicle for analysis. There was excellent hemostasis. The wound site was irrigated copiously with saline. The tunica vaginalis was reapproximated using 3-0 Vicryl suture. The dartos was reapproximated using 3-0 Vicryl suture. The skin was then closed using running 4-0 chromic suture. Gauze and Tegaderm was placed. This concluded procedure the patient tolerated seizure well. He is brought to PACU without further incident. He will follow-up in 6 weeks time
[2024-05-15] MEDS: fentaNYL 100 MCG/2 ML VIAL IVP PRN (13:13)
[2024-05-15] MEDS: LACTATED RINGERS 500 ML IV ONE (13:21)
[2024-05-15] MEDS ORDERED: HYDROcod/ACETAM 5/325 MG TABLET ONE (13:37)
[2024-05-15] MEDS: HYDROcod/ACETAM 5/325 MG TABLET PO PRN (13:39)
[2024-05-15 14:13] VITALS: BP 120/63; O2SAT 97
--- NOTE | 2024-05-15 15:12 | ANESTHESIA POST OP EVALUATION ---
Anesthesia Post Eval - Post Anesthesia Eval Vitals: Last Vital Signs Temp 36.6 C 05/15/24 13:50 Pulse 80 05/15/24 13:50 Resp 14 05/15/24 13:50 BP 120/63 05/15/24 13:50 Pulse Ox 97 05/15/24 13:50 O2 Flow Rate CV Function Including HR & BP: Stable Pain Control: Satisfactory Nausea & Vomiting: Negative Mental Status: Baseline Respiratory Status: Airway Patent Hydration Status: Satisfactory Anesthesia Complications: None
== END 2024-05-15 08:50 | disposition home or self-care (01) ==
LOC: SDS 08:49
PROVIDERS: ATTEND Urology
PROC: 0VB90ZZ Excision of Right Testis, Open Approach (ICD-10-PCS; principal; 2024-05-15 11:15)
DX: N44.00 Torsion of testis, unspecified (principal); G20.A1 Parkinson's disease without dyskinesia, without mention of fluctuations
CPT/HCPCS: 54520; A9270; J7120